=== PATIENT | male | born 1950 | race Caucasian/White ===

== ENCOUNTER → 2021-04-23 | Outpatient (CLI) | payer MEDICARE, OTHER ==
[~2021-04-23] MED LIST: ADVIL200 MG PO; ANTA PO; CENTRUM SILVER1 EAC1 PO; ELIQUIS 2.5 MG2.5 MG PO; FLUZONE QU60 MCG/013 IM; NORCO 7.5-3251 EACH PO; TYLENOL 500 MG500 MG PO; ULTRAM50 MG PO; WELLBUTRIN XL300 M1 PO; ZANTAC150 MG PO
== END ==
LOC: EMI 04-17 08:00
DX: M48.061 Spinal stenosis, lumbar region without neurogenic claudication (principal); M48.02 Spinal stenosis, cervical region; M51.36 Other intervertebral disc degeneration, lumbar region; M51.34 Other intervertebral disc degeneration, thoracic region; M50.321 Other cervical disc degeneration at C4-C5 level
CPT/HCPCS: 72141; 72146

== ENCOUNTER → 2021-05-03 | Outpatient (CLI) | payer MEDICARE, OTHER | LOC: EXRD 04-09 11:30 | DX: M81.0 Age-related osteoporosis without current pathological fracture (principal); M85.852 Other specified disorders of bone density and structure, left thigh | CPT/HCPCS: 77080 ==